=== PATIENT | male | born 2000 | race Caucasian/White ===

== ENCOUNTER 2019-02-08 23:47 | Emergency (ER) | payer SELFPAY ==
[2019-02-09 00:17] LABS: #Basophils 0.1 thou/uL (0.0-0.2); #Eosinphils 0.3 thou/uL (0.0-0.7); #Lymphocytes 3.1 thou/uL (1.20-3.40); #Monocytes 0.8 thou/uL (0.11-0.59); %Basophils 0.6 % (0.0-1.0); %Eosinophils 2.9 % (0.0-10.0); %Lymphocytes 33.2 % (28.0-48.0); %Monocytes 8.8 % (0.0-4.0); %Neutrophils 54.6 % (31.0-61.0); Hemoglobin 13.8 g/dL (14.0-18.0); Mean Corpuscular HGB CONC 34.8 g/dL (32.0-36.0); Mean Corpuscular Hemoglobin 32.5 pg (25.0-35.0); Mean Corpuscular Volume 93.3 fL (78.0-98.0); Mean Platelet Volume 7.1 fL (7.4-10.4); Platelet Count 221 thou/uL (130-400); RBC Distribution Width 11.9 % (11.5-14.5); Red Blood Cell (RBC) Count 4.26 mill/uL (4.00-5.20); White Blood Cell (WBC) Count 9.2 thou/uL (4.8-10.8)
[2019-02-09 00:38] LABS: ALT (SGPT) 13 U/L (8-55); AST (SGOT) 18 U/L (5-34); Albumin 4.5 g/dL (3.5-5.0); Alkaline Phosphatase 73 U/L (Less than 750); Anion Gap 11 mmol/L (10-20); BUN (Urea Nitrogen) 10 mg/dL (8.9-20.6); Bilirubin, Total 0.8 mg/dL (0.2-1.2); Calc. Creatinine Clearance 0 mL/min (70-130); Calcium 9.5 mg/dL (7.8-10.44); Carbon Dioxide 27 mmol/L (22-29); Chloride 105 mmol/L (98-107); Estimated GFR-MDRD Greater than 90; Glucose 100 mg/dL (70-105); Potassium 3.7 mmol/L (3.5-5.1); Protein, Total 7.5 g/dL (6.0-8.3); Sodium 139 mmol/L (136-145)
[2019-02-09] MEDS ORDERED: Ketorolac Tromethamine 60 MG/2 ML VIAL ONE (00:48)
--- NOTE | 2019-02-09 07:51 | RAD ---
XR Chest 1 View Portable History: [Substernal chest pain] Comparison: None. Findings: There is a left apical pneumothorax with apex at the fourth posterior rib. Right lung is cl ear. No significant effusion. Cardiac silhouette and mediastinal contours are within normal limits. No acute osseous abnormality. Impression: Left apical pneumothorax with apex at the posterior left fourth rib which calculates to a pproximately 30% volume. Charge nurse notified of findings at 7:47 AM.
== END 2019-02-09 01:18 | disposition home or self-care (01) ==
LOC: ERS 23:47
DX: M94.0 Chondrocostal junction syndrome [Tietze] (principal); F41.9 Anxiety disorder, unspecified; F84.5 Asperger's syndrome; F90.9 Attention-deficit hyperactivity disorder, unspecified type; F32.9 Major depressive disorder, single episode, unspecified; F17.210 Nicotine dependence, cigarettes, uncomplicated
CPT/HCPCS: 36415; 71045; 80053; 85025; 93005; 96372; J1885

== ENCOUNTER 2019-02-09 12:59 | Emergency (ER) | payer SELFPAY ==
--- NOTE | 2019-02-09 13:49 | CT ---
CT Chest WO Con History: Pneumothorax. Comparison: Radiograph same day Findings: Moderate left pneumothorax involving approximately 30% left hemithorax volume. No mediastin al shift. Small volume fluid within the left lung base. Thyroid is unremarkable. No mediastinal adenopathy. No pericardial effusion. Upper abdomen is unremar kable. No thoracic spine compression deformity. Sternum and manubrium are intact. No displaced rib fracture. Impression: Moderate left pneumothorax encompassing 30% of the left hemithorax volume without mediast inal shift.
--- NOTE | 2019-02-09 15:20 | RAD ---
XR Chest 1 View Portable History: Chest catheter placement Comparison: Radiograph same day Findings: Interval placement of a left thoracostomy tube. The pneumothorax is similar with apex at th e left posterior third-fourth rib interspace. Impression: Similar left pneumothorax with indwelling thoracostomy tube.
--- NOTE | 2019-02-09 21:46 | CON ---
DATE OF CONSULTATION: 02/09/2019 HISTORY OF PRESENT ILLNESS: This is a 18-year-old gentleman experienced sudden onset of chest pain yesterday evening while vaping. He has a history of smoking half pack of cigarettes a day and using marijuana. He drinks socially, which is every other day. He has a history of anxiety, depression, and hyperactivity. He lives in [place] and is accompanied by his mother. When seen in the emergency room yesterday, no specific diagnosis was entertained and he was discharged. Subsequently, review of his chest x-ray suggested a pneumothorax on the left and he readmitted today in the emergency room for CT scan, which confirmed pneumothorax. There was a slight hint of a very small apical bleb, probably 2 mm on the right chest, but nothing on the left otherwise. PAST SURGICAL HISTORY: Negative. SOCIAL HISTORY: As reviewed above. PHYSICAL EXAMINATION: GENERAL: Alert and cooperative gentleman, appearing his stated age of 18. NECK: No subcutaneous air. No adenopathy. LUNGS: Slightly decreased breath sounds on the left compared to the right. HEART: Bradycardia, heart rate about 50. No murmurs. ABDOMEN: Soft and nontender. EXTREMITIES: No edema. I have recommended a small catheter placement rather than observation. He and his mother are agreeable to proceed. PROCEDURE: The patient was prepped and draped in the left anterior chest. After infiltration of lidocaine, the chest had a small skin incision made out to allow placement of catheter over the third rib. After this had been placed, secured to the skin and chest x-ray is pending. The patient tolerated the procedure. Job ID: [id number]
== END 2019-02-09 15:43 | disposition home or self-care (01) ==
LOC: ERS 12:59
DX: J95.811 Postprocedural pneumothorax (principal); F90.9 Attention-deficit hyperactivity disorder, unspecified type; F41.9 Anxiety disorder, unspecified; F32.9 Major depressive disorder, single episode, unspecified; F17.210 Nicotine dependence, cigarettes, uncomplicated
CPT/HCPCS: 71045; 71250

== ENCOUNTER 2019-02-26 16:18 | Outpatient (CLI) | payer SELFPAY ==
--- NOTE | 2019-02-26 16:40 | RAD ---
EXAM: Chest 2 views: HISTORY: Spontaneous tension pneumothorax COMPARISON: 02/09/2019 FINDINGS: There is a normal-sized cardiomediastinal silhouette. A catheter projects over the left chest. No pn eumothorax is visualized. There is no evidence of consolidation, mass, or pleural effusion. The bones are unremarkable. IMPRESSION: Resolution of previously seen pneumothorax.
== END 2019-02-26 16:19 | disposition home or self-care (01) ==
LOC: RAD 16:18
PROVIDERS: ATTEND Thoracic Surgery (Cardiothoracic Vascular Surgery)
DX: J93.0 Spontaneous tension pneumothorax (principal)
CPT/HCPCS: 71046

== ENCOUNTER 2025-03-03 19:35 | Emergency (ER) | payer OTHER ==
[2025-03-03 20:09] LABS: #Basophils 0.03 10x3/uL (0.0-0.2); #Eosinophils 0.07 10x3/uL (0.0-0.7); #Monocytes 1.41 10x3/uL (0.11-0.59); #Neutrophils 7.62 10x3/uL (1.40-6.50); %Basophils 0.2 % (0.0-1.0); %Eosinophils 0.6 % (0.0-10.0); %Lymphocytes 23.6 % (21.0-51.0); %Monocytes 11.7 % (0.0-10.0); %Neutrophils 63.5 % (42.0-75.0); Hematocrit 42.2 % (42.0-52.0); Hemoglobin 14.2 g/dL (14.0-18.0); Mean Corpuscular Hemoglobin 29.4 pg (27.0-31.0); Mean Corpuscular Volume 87.4 fL (78.0-98.0); Platelet Count 334 10x3/uL (130-400); Red Blood Cell (RBC) Count 4.83 mill/uL (4.70-6.10); White Blood Cell (WBC) Count 12.01 10x3/uL (4.8-10.8)
[2025-03-03 20:29] LABS: ALT (SGPT) 26 U/L (Less than 45); AST (SGOT) 57 U/L (11-34); Albumin 4.3 g/dL (3.1-4.5); Alkaline Phosphatase 90 U/L (40-110); Anion Gap 15 mmol/L (10-20); BUN (Urea Nitrogen) 14 mg/dL (8.9-20.6); Bilirubin, Total 0.9 mg/dL (0.3-1.2); CK (CPK) 1431 U/L (30-200); Calc. Creatinine Clearance 0 mL/min (70-130); Calcium 9.1 mg/dL (7.8-10.44); Carbon Dioxide 24 mmol/L (22-29); Chloride 103 mmol/L (98-107); Globulin 3.3 g/dL (2.4-3.5); Glucose 100 mg/dL (70-105); Potassium 3.9 mmol/L (3.5-5.1); Sodium 138 mmol/L (136-145)
[2025-03-03 20:30] LABS: Acetaminophen Less than 10 mcg/mL (Less than 10); Salicylate Less than 8.0 mg/dL (Less than 8.0)
[2025-03-03 20:34] LABS: Troponin I Less than 0.010 ng/mL (< 0.028)
[2025-03-04 10:58] LABS: Cocaine Metabolite Screen PRELIM POSITIVE (Negative); THC/Cannabinoid Screen PRELIM POSITIVE (Negative); Tricyclic Screen Negative (Negative)
== END 2025-03-04 10:48 ==
LOC: EEVIPCON 19:35 → ERS 19:35
DX: R45.851 Suicidal ideations (principal); E86.0 Dehydration; F17.210 Nicotine dependence, cigarettes, uncomplicated
CPT/HCPCS: 71045; 80053; 80306; 80307; 82550; 84484; 85025; 85379; 93005; 96360; 96361

== ENCOUNTER 2025-04-11 17:28 | Emergency (ER) | payer OTHER ==
[2025-04-11] MEDS ORDERED: Ketorolac Tromethamine 30 MG (1 mL) VIAL ONE (18:52)
[2025-04-11] MEDS ORDERED: Bacitracin 1 PK ONE (19:25)
== END 2025-04-11 21:41 | disposition home or self-care (01) ==
LOC: ERS 17:28
DX: S00.211A Abrasion of right eyelid and periocular area, initial encounter (principal); F17.210 Nicotine dependence, cigarettes, uncomplicated; W22.8XXA Striking against or struck by other objects, initial encounter; Y92.513 Shop (commercial) as the place of occurrence of the external cause; Y99.0 Civilian activity done for income or pay
CPT/HCPCS: 70450; 96374; J1885